=== PATIENT | female | born 1970 | race Caucasian/White ===

== ENCOUNTER 2023-02-18 12:37 | Emergency (ER) | payer OTHER ==
[~2023-02-18] VITALS: Ht 170.2 cm; Wt 81.6 kg
[~2023-02-18 12:37] MED LIST: GLIMEPIRIDE4 MG; INTESTINEX1 CA1 PO; JANUMET 50-1,1 UDTAB; SYNTHROID88 MCG; VALTREX1000 MG PO; ZOVIRAX15 GM TP
[2023-02-18] MEDS ORDERED: METFORMIN HCL1000 MG PO (13:04)
[2023-02-18] MEDS ORDERED: OMEPRAZOLE40 MG PO (17:57)
[2023-02-18] MEDS ORDERED: INTESTINEX680 M1 PO (17:57)
[2023-02-18] MEDS ORDERED: LEVSIN/SL0.125 MG SL (17:57)
[2023-02-18] MEDS ORDERED: METRONIDAZOLE500 MG PO (17:57)
[2023-02-18] MEDS ORDERED: AMOX-CLAV 875-1 EACH PO (17:57)
== END 2023-02-18 19:14 | disposition home or self-care (01) ==
LOC: ER 12:37
DX: K57.32 Diverticulitis of large intestine without perforation or abscess without bleeding (principal)

== ENCOUNTER → 2023-12-26 10:29 | Outpatient (CLI) | payer OTHER ==
[~2023-12-26 10:29] MED LIST changes: +AMOX-CLAV 875-1 EACH PO; +INTESTINEX680 M1 PO; +LEVSIN/SL0.125 MG SL; +METFORMIN HCL1000 MG PO; +METRONIDAZOLE500 MG PO; +OMEPRAZOLE40 MG PO
[2023-12-26 12:48] LABS: COL EPI 185 SECONDS (82-175)
[2023-12-26 14:50] LABS: COL ADP 97 SECONDS (56-102)
== END | disposition home or self-care (01) ==
LOC: LAB 10:29
PROVIDERS: ATTEND Internal Medicine Hematology & Oncology
DX: D68.8 Other specified coagulation defects (principal)